=== PATIENT | female | born 1970 | race Caucasian/White ===

== ENCOUNTER 2018-01-29 18:49 | Emergency (ER) | payer SELFPAY ==
--- NOTE | 2018-01-29 18:52 | ER Report ---
History and Physical Time Seen By MD: 18:51 HPI/ROS CHIEF COMPLAINT: Fall with injury HISTORY OF PRESENT ILLNESS: 47-year-old female presents via wheelchair complaining of back pain. Patient admits to heavy alcohol ingestion. She fell backwards, striking her left lower back. Now, she's developed a large area of swelling. There is an approximately 10 cm large hematoma in the left lower back region. Patient has movement of extremities 4. Patient denies head impact, neck pain, chest pain, shortness of breath. REVIEW OF SYSTEMS: Respiratory: No cough, no dyspnea. Cardiovascular: No chest pain, no palpitations. Gastrointestinal: No vomiting, no abdominal pain. Musculoskeletal: As above Allergies: Coded Allergies: chocolate flavor (Verified Allergy, Unknown, 01/29/18) Home Meds No Active Prescriptions or Reported Meds Reviewed Nurses Notes: Yes Old Medical Records Reviewed: Yes Constitutional Vital Sign - Last 24 Hours 01/29/18 18:57 Temp 97.8 Pulse 70 Resp 16 B/P (MAP) 134/93 Pulse Ox 95 O2 Delivery Room Air Physical Exam General Appearance: The patient is alert, has no immediate need for airway protection and no current signs of toxicity.. Vital signs stable, afebrile, pulse ox normal, slurred speech consistent with alcohol ingestion HEENT: Pupils equal and round no injection. Oropharynx without dental trauma Respiratory: Chest is non tender, lungs are clear to auscultation. No chest wall tenderness Cardiac: regular rate and rhythm Gastrointestinal: Abdomen is soft and non tender, no masses, bowel sounds normal. Musculoskeletal: Neck: Neck is supple and non tender. Back: There is a large hematoma noted in the left lower lumbar region proximal 10-12 cm in diameter. It is approximately 2 cm thick on palpation. It is firm and mildly tender to palpation. There is a faint tone of ecchymosis to it Extremities have full range of motion and are non tender. Skin: No rashes or lesions. DIFFERENTIAL DIAGNOSIS: After history and physical exam differential diagnosis was considered for back pain including but not limited to muscular pain, herniated disc, spine fracture, intra-abdominal causes and urinary tract infection. Back contusion, back, hematoma, Medical Decision Making ED Course/Re-evaluation ED Course Patient was admitted to an examination room. H&P was done. The differential diagnoses was considered. On clinical examination. Patient has full movement of both her lower extremities. She readily rolls over in the bed without any discomfort, showing her back side. There is a large hematoma noted. There is no tenderness on palpation of the midline of the entire spinal axis. There is no CVA tenderness. Patient has negative straight leg raise bilaterally. Her neurologic exam is nonfocal. Patient's advised to conservative treatment plan for hematoma. She is advised that the hematoma may migrate with gravity down the tissue planes of her left buttocks. Patient's advised ice for 2 days then switch to heat to help reabsorption of hematoma. Patient's advised Tylenol and ibuprofen for symptomatically relief. Decision to Disposition Date: January 29, 2018 Decision to Disposition Time: 19:04 Depart Departure Latest Vital Signs Vital Signs Date Time Temp Pulse Resp B/P (MAP) Pulse Ox O2 Delivery O2 Flow Rate FiO2 01/29/18 18:57 97.8 70 16 134/93 95 Room Air Impression: Primary Impression: Traumatic hematoma of lower back Additional Impression: Alcohol intoxication Condition: Improved Disposition: HOME OR SELF-CARE New Scripts No Active Prescriptions or Reported Meds Patient Instructions: Hematoma (ED) Additional Instructions: Take ibuprofen and Tylenol as needed Apply ice packs for 2 days to the affected area 20-30 minutes 3-4 times a day Wear compressive wrap or back binder Switch to a heating pad to help reabsorb the bleeding. The hematoma may migrate down your left leg due to gravity Follow-up with your primary care if unimproved in 3-5 days Problem Qualifiers Primary Impression: Traumatic hematoma of lower back Encounter type: initial encounter Qualified Codes: S30.0XXA - Contusion of lower back and pelvis, initial encounter RORY CANNON DO January 29, 2018 18:51
[2018-01-29 18:57] VITALS: BP 134/93
== END 2018-01-29 19:15 | disposition home or self-care (01) ==
LOC: ER 19:14
DX: S30.0XXA Contusion of lower back and pelvis, initial encounter (principal); F10.129 Alcohol abuse with intoxication, unspecified; W18.30XA Fall on same level, unspecified, initial encounter
CPT/HCPCS: 99282